=== PATIENT | male | born 1950 | race Caucasian/White ===

== ENCOUNTER 2025-09-19 14:24 | Inpatient (IN) | payer MEDICARE, OTHER ==
[~2025-09-19] VITALS: Ht 182.9 cm; Wt 86.1 kg
[2025-09-19] MEDS ORDERED: ALBUTEROL SULFATE 2.5 MG/0.5 ML NEB SOLUTION NEB ONE (14:30)
[2025-09-19] MEDS ORDERED: IPRATROPIUM BROMIDE 0.5 MG/2.5 ML NEB SOLUTION NEB ONE (14:30)
[2025-09-19 15:28] LABS: PLATELET COUNT (AUTO) 370 K/uL (150-450); RED BLOOD CELL COUNT(AUTO) 3.08 MIL/uL (4.50-5.90); RED CELL DISTRIBUTION WIDTH 14.8 % (11.5-14.5); WHITE BLOOD COUNT (AUTO) 10.6 K/uL (4.5-11.0)
[2025-09-19 15:39] LABS: CALCIUM, TOTAL 9.1 mg/dL (8.8-10.5); CREATININE 1.26 mg/dL (0.60-1.30); GLOMERULAR FILTR. RATE CALC 56 mL/min (>60); GLUCOSE,RANDOM 270 mg/dL (70-110); SODIUM SERUM 137 mmol/L (136-145); UREA NITROGEN, BLOOD 52 mg/dL (7-18)
[2025-09-19 15:40] LABS: PHOSPHORUS 4.9 mg/dL (2.5-4.9)
[2025-09-19 15:45] LABS: TROPONIN I-HIGH SENSITIVITY 271 ng/L (<76)
[2025-09-19] MEDS ORDERED: ONDANSETRON HCL 4 MG/2 ML VIAL IVP PRN (17:15)
[2025-09-19 17:20] LABS: COVID AG,FIA SOURCE NASAL SWAB
[2025-09-19 17:49] LABS: SARS-COV2 (COVID) ANTIGEN,FIA Negative (Negative)
[2025-09-19 17:50] LABS: INFLUENZA TYPE A NEGATIVE FOR TYPE A (NEGATIVE); INFLUENZA TYPE B NEGATIVE FOR TYPE B (NEGATIVE)
[2025-09-19 17:58] LABS: TROPONIN I-HIGH SENSITIVITY 142 ng/L (<76)
[2025-09-19 18:45] LABS: APPEARANCE,URINE CLEAR (CLEAR); GLUCOSE, URINE (UA) >=1000 mg/dL (NEGATIVE); LEUKOCYTE ESTERASE ,URINE NEGATIVE (NEGATIVE); NITRATE,URINE NEGATIVE (NEGATIVE); OCCULT BLOOD,URINE NEGATIVE (NEGATIVE); SPECIFIC GRAVITIY, URINE 1.020 (1.003-1.030)
[2025-09-19] MEDS ORDERED: IOHEXOL 350 MG/ML 100 ML VIAL ONE ×3 (19:13→21:30)
[2025-09-19 19:32] LABS: SQUAMOUS EPITHELIAL CELL,UR Rare /LPF (None Seen)
[2025-09-19 20:10] LABS: TROPONIN I-HIGH SENSITIVITY 287 ng/L (<76)
[2025-09-19] MEDS: DOCUSATE SODIUM 100 MG CAPSULE PO SCH (20:12)
[2025-09-19] MEDS ORDERED: SODIUM CHLORIDE 0.9% 100 ML ONE ×2 (20:16→21:30)
[2025-09-19] MEDS ORDERED: 0.9% SODIUM CHLORIDE 10 ML SYRINGE IVP PRN (21:30)
[2025-09-19] MEDS ORDERED: SODIUM CHLORIDE 0.9% 2,700 ML IV ONE (21:30)
[2025-09-19] MEDS: VANCOMYCIN 1.75GM/WATER(PEG) 350 ML IV ONE (22:00)
[2025-09-19 22:04] LABS: PLATELET COUNT (AUTO) 393 K/uL (150-450); RED BLOOD CELL COUNT(AUTO) 3.26 MIL/uL (4.50-5.90); RED CELL DISTRIBUTION WIDTH 15.2 % (11.5-14.5); WHITE BLOOD COUNT (AUTO) 8.1 K/uL (4.5-11.0)
[2025-09-19 22:14] LABS: CALCIUM, TOTAL 9.4 mg/dL (8.8-10.5); CREATININE 0.90 mg/dL (0.60-1.30); GLOMERULAR FILTR. RATE CALC > 60 mL/min (>60); GLUCOSE,RANDOM 149 mg/dL (70-110); SODIUM SERUM 142 mmol/L (136-145); UREA NITROGEN, BLOOD 48 mg/dL (7-18)
[2025-09-19 22:18] LABS: ASPARTATE AMINOTRANSFERASE 24 U/L (15-37); LACTATE DEHYDROGENASE 343 U/L (85-227); TOTAL PROTEIN, SERUM 6.6 g/dL (6.4-8.2)
[2025-09-19 22:20] LABS: LACTIC ACID 1.2 mmol/L (0.4-2.0)
[2025-09-19 22:28] VITALS: BP 158/83; PULSE 91; RESP 18; TEMP 98.6; O2SAT 99
[2025-09-19] MEDS: SODIUM CHLORIDE 0.9% 250 ML IV ONE (23:12)
[2025-09-20] VITALS (11 sets, daily range): BP systolic 118–158; BP diastolic 71–86; PULSE 62–93; RESP 17–24; TEMP 97.2–98.4; O2SAT 95–99
[2025-09-20] MEDS ORDERED: SODIUM CHLORIDE 0.9% 500 ML IV ONE ×2 (00:14→12:04)
[2025-09-20] MEDS: HEPARIN SODIUM,PORCINE 5,000 UNITS/ML VIAL SQ SCH (00:30)
[2025-09-20 01:22] LABS: TROPONIN I-HIGH SENSITIVITY 241 ng/L (<76)
[2025-09-20] MEDS: FUROSEMIDE 40 MG/4 ML VIAL IVP ONE (04:00)
[2025-09-20] MEDS: CefTRIAXone 1 GM/DEXTROSE 50 ML IV SCH (04:00)
[2025-09-20 06:25] LABS: PLATELET COUNT (AUTO) 337 K/uL (150-450); RED BLOOD CELL COUNT(AUTO) 2.92 MIL/uL (4.50-5.90); RED CELL DISTRIBUTION WIDTH 15.0 % (11.5-14.5); WHITE BLOOD COUNT (AUTO) 8.7 K/uL (4.5-11.0)
[2025-09-20 07:04] LABS: CALCIUM, TOTAL 9.1 mg/dL (8.8-10.5); CREATININE 1.03 mg/dL (0.60-1.30); GLOMERULAR FILTR. RATE CALC > 60 mL/min (>60); GLUCOSE,RANDOM 156 mg/dL (70-110); SODIUM SERUM 141 mmol/L (136-145); UREA NITROGEN, BLOOD 45 mg/dL (7-18)
[2025-09-20] MEDS: VANCOMYCIN 1GM/WATER(PEG/NADA) 200 ML IV SCH (08:00)
[2025-09-20] MEDS ORDERED: VANCOMYCIN 1.5 GM/WATER(PEG) 300 ML IV SCH (08:00)
[2025-09-20 10:14] LABS: ABG BASE EXCESS 6.5 mmol/L (-2.0-3.0); ABG CARBOXYHEMOGLOBIN 0.8 % (0.5-1.5); ABG HCO3 29.8 mmol/L (21.0-28.0); ABG METHEMOGLOBIN 0.3 % (0.0-1.5); ABG OXYGEN CONTENT 13.4 mL/dL (15.0-23.0); ABG OXYGEN SATURATION 94.6 % (94.0-98.0); ABG OXYHEMOGLOBIN 93.6 % (94.0-98.0); ABG PCO2 39 mmHg (32.0-48.0); ABG PH 7.498 (7.350-7.450); ABG TOTAL HEMOGLOBIN 10.1 G/dL (13.5-17.5); FRACTIONATED INSPIRED OXYGEN 40.0 % (21-100.0); PO2, ARTERIAL BG 67.6 mmHg (83.0-108.0); SOURCE, BLOOD GAS ARTERIAL; TEMPERATURE, FAHRENHEIT, BG 97.0 FAHREN (96.0-98.6)
[2025-09-20 10:15] LABS: ABG A-A DIFF O2 173.6 mmHg (10-20.0); ALLEN TEST, BLOOD GAS Positive; FLOW, BLOOD GAS 30.00 L/min (0.00-15.00); O2 DEVICE,BLOOD GAS HI FL CANNULA (ROOM AIR); SITE, BLOOD GAS RT RADIAL
[2025-09-20] MEDS ORDERED: DEXTROSE 50%-WATER 25 GM/50 ML SYRINGE IVP PRN (10:15)
[2025-09-20] MEDS ORDERED: HEPARIN SODIUM,PORCINE 5,000 UNITS/ML VIAL IVP PRN (10:30)
[2025-09-20] MEDS: FUROSEMIDE 20 MG/2 ML VIAL IVP SCH (10:31)
[2025-09-20] MEDS: ASPIRIN 81 MG CHEWABLE TABLET PO SCH (10:32)
[2025-09-20] MEDS: ATORVASTATIN CALCIUM 40 MG TABLET PO ONE (10:32)
[2025-09-20 11:41] LABS: PLATELET COUNT (AUTO) 362 K/uL (150-450); RED BLOOD CELL COUNT(AUTO) 3.12 MIL/uL (4.50-5.90); RED CELL DISTRIBUTION WIDTH 15.3 % (11.5-14.5); WHITE BLOOD COUNT (AUTO) 8.4 K/uL (4.5-11.0)
[2025-09-20] MEDS: POLYETHYLENE GLYCOL 3350 17 GM PACKET PO SCH (12:00)
[2025-09-20] MEDS: PIPERACILLIN/TAZO 3.375 GM/D5W 50 ML IV SCH (12:17)
[2025-09-20] MEDS: HEPARIN SODIUM,PORCINE 5,000 UNITS/ML VIAL IVP ONE (12:56)
[2025-09-20] MEDS: HEPARIN SODIUM 25000 UNITS/D5W 250 ML IV PRN (13:04)
[2025-09-20] MEDS: INSULIN LISPRO 100 UNITS/ML SQ PRN (18:28)
[2025-09-20] MEDS: HEPARIN SODIUM,PORCINE 5,000 UNITS/ML VIAL IVP PRN (20:48)
[2025-09-20 23:31] LABS: GLUCOMETER DEV NAME(LOC) 5S.2E; GLUCOSE,POINT OF CARE 210 MG/DL (70-110)
[2025-09-21 03:02] VITALS: BP 152/85; PULSE 98; RESP 19; TEMP 97.9; O2SAT 96
[2025-09-21] MEDS ORDERED: ALLO100T50 PO (04:54)
[2025-09-21] MEDS ORDERED: VALS40TA11 PO (05:03)
[2025-09-21] MEDS ORDERED: MEMA10TA24 PO (05:03)
[2025-09-21] MEDS ORDERED: SPIR-37 PO (05:03)
[2025-09-21] MEDS ORDERED: CLOP-31 PO (05:03)
[2025-09-21] MEDS ORDERED: ATOR40TA71 PO (05:03)
[2025-09-21] MEDS ORDERED: TAMS0.4C94 PO (05:03)
[2025-09-21] MEDS ORDERED: FURO-151 PO (05:03)
[2025-09-21] MEDS ORDERED: EZET10TA82 PO (05:03)
[2025-09-21] MEDS ORDERED: EMPA25TA3 PO (05:03)
[2025-09-21] MEDS ORDERED: BISA10SU61 PR (05:03)
[2025-09-21] MEDS ORDERED: ASPI81TA87 PO (05:03)
[2025-09-21 06:22] LABS: PLATELET COUNT (AUTO) 391 K/uL (150-450); RED BLOOD CELL COUNT(AUTO) 3.18 MIL/uL (4.50-5.90); RED CELL DISTRIBUTION WIDTH 15.3 % (11.5-14.5); WHITE BLOOD COUNT (AUTO) 10.0 K/uL (4.5-11.0)
[2025-09-21 06:26] LABS: CALCIUM, TOTAL 9.3 mg/dL (8.8-10.5); CREATININE 1.27 mg/dL (0.60-1.30); GLOMERULAR FILTR. RATE CALC 55.0 mL/min (>60); GLUCOSE,RANDOM 187.0 mg/dL (70-110); SODIUM SERUM 136.0 mmol/L (136-145); UREA NITROGEN, BLOOD 48.0 mg/dL (7-18)
[2025-09-21 07:29] VITALS: PULSE 89; RESP 20; O2SAT 95
[2025-09-21 09:05] LABS: SPECIMENTYPE,BODY FLUID PLV
[2025-09-21 10:12] LABS: APPEARANCE,SPUN,BODY FLUID TURBID (CLEAR); APPEARANCE,UNSPUN,BODY FLUID BLOODY (CLEAR); COLOR,BODY FLUID RED (LT YELLOW); TOTAL VOLUME,BODY FLUID 650 mL; WBC, BODY FLUID 167 /cu. mm.
[2025-09-21 10:13] LABS: BASOPHILS,BODY FLUID 0 % (1-5); EOSINOPHILS,BF (ANAL) 0 %; LYMPHOCYTES,BODY FLUID 15 %; MONOCYTES,BODY FLUID 6 %; NEUTROPHILS,BODY FLUID 79 %; PH, BODY FLUID 9.0 (6.8-7.6)
[2025-09-21 12:51] VITALS: BP 152/76; PULSE 78; RESP 17; TEMP 97.7; O2SAT 99
[2025-09-21 16:39] VITALS: BP 129/68; PULSE 79; RESP 17; TEMP 98.2; O2SAT 99
[2025-09-21] MEDS ORDERED: SODIUM CHLORIDE 0.9% 1,000 ML ONE (18:06)
[2025-09-21 18:31] LABS: GLUCOMETER DEV NAME(LOC) 5S.2E; GLUCOSE,POINT OF CARE 223 MG/DL (70-110)
[2025-09-21 18:31] LABS: GLUCOMETER DEV NAME(LOC) 5S.2E; GLUCOSE,POINT OF CARE 182 MG/DL (70-110)
[2025-09-21 18:31] LABS: GLUCOMETER DEV NAME(LOC) 5S.2E; GLUCOSE,POINT OF CARE 185 MG/DL (70-110)
[2025-09-21 19:59] VITALS: PULSE 74; RESP 18; O2SAT 94
[2025-09-21] MEDS: ATORVASTATIN CALCIUM 40 MG TABLET PO SCH (20:20)
[2025-09-21 20:34] VITALS: BP 130/66; PULSE 79; RESP 19; TEMP 98.2; O2SAT 99
[2025-09-21] MEDS ORDERED: SODIUM CHLORIDE 0.9% 250 ML IV ONE (21:28)
[2025-09-22] VITALS (7 sets, daily range): BP systolic 103–154; BP diastolic 60–77; PULSE 71–92; RESP 18–19; TEMP 97.7–98.8; O2SAT 96–99
[2025-09-22 08:56] LABS: PLATELET COUNT (AUTO) 350 K/uL (150-450); RED BLOOD CELL COUNT(AUTO) 2.93 MIL/uL (4.50-5.90); RED CELL DISTRIBUTION WIDTH 15.3 % (11.5-14.5); WHITE BLOOD COUNT (AUTO) 7.4 K/uL (4.5-11.0)
[2025-09-22 09:05] LABS: CALCIUM, TOTAL 8.6 mg/dL (8.8-10.5); CREATININE 0.96 mg/dL (0.60-1.30); GLOMERULAR FILTR. RATE CALC > 60 mL/min (>60); GLUCOSE,RANDOM 148 mg/dL (70-110); SODIUM SERUM 140 mmol/L (136-145); UREA NITROGEN, BLOOD 43 mg/dL (7-18)
[2025-09-22] MEDS: FUROSEMIDE 20 MG/2 ML VIAL IVP SCH (13:36)
[2025-09-22] MEDS: VANCOMYCIN 1GM/WATER(PEG/NADA) 200 ML IV ONE (13:45)
[2025-09-22 14:07] LABS: GLUCOSE, BODY FLUID,REF 161.0 mg/dL; LDH,BODY FLUID,REF 1183.0 IU/L; TOTAL PROTEIN,BODY FLUID,REF 3.0 g/dL
[2025-09-22 17:50] LABS: GLUCOMETER DEV NAME(LOC) 5N.2C; GLUCOSE,POINT OF CARE 226 MG/DL (70-110)
[2025-09-22 17:51] LABS: GLUCOMETER DEV NAME(LOC) 5N.2C; GLUCOSE,POINT OF CARE 157 MG/DL (70-110)
[2025-09-22] MEDS: VANCOMYCIN 1GM/WATER(PEG/NADA) 200 ML IV SCH (20:41)
[2025-09-23] VITALS (10 sets, daily range): BP systolic 131–156; BP diastolic 70–82; PULSE 73–87; RESP 16–24; TEMP 97.7–98.6; O2SAT 95–99
[2025-09-23 06:53] LABS: CALCIUM, TOTAL 9.3 mg/dL (8.8-10.5); CREATININE 1.03 mg/dL (0.60-1.30); GLOMERULAR FILTR. RATE CALC > 60 mL/min (>60); GLUCOSE,RANDOM 151 mg/dL (70-110); SODIUM SERUM 139 mmol/L (136-145); UREA NITROGEN, BLOOD 39 mg/dL (7-18)
[2025-09-23] MEDS: HEPARIN SODIUM,PORCINE 5,000 UNITS/ML VIAL SQ SCH (20:50)
[2025-09-23] MEDS ORDERED: SODIUM CHLORIDE 0.9% 500 ML IV ONE (21:01)
[2025-09-23 21:40] LABS: GLUCOMETER DEV NAME(LOC) 4E.2; GLUCOSE,POINT OF CARE 245 MG/DL (70-110)
[2025-09-23] MEDS: FUROSEMIDE 20 MG/2 ML VIAL IVP ONE (22:19)
[2025-09-23] MEDS: ALBUTEROL SULFATE 2.5 MG/0.5 ML NEB SOLUTION NEB PRN (23:48)
[2025-09-23] MEDS: IPRATROPIUM BROMIDE 0.5 MG/2.5 ML NEB SOLUTION NEB PRN (23:48)
[2025-09-24 05:30] VITALS: BP 143/74; PULSE 82; RESP 20; TEMP 98.5; O2SAT 99
[2025-09-24 06:26] LABS: PLATELET COUNT (AUTO) 339 K/uL (150-450); RED BLOOD CELL COUNT(AUTO) 3.05 MIL/uL (4.50-5.90); RED CELL DISTRIBUTION WIDTH 15.2 % (11.5-14.5); WHITE BLOOD COUNT (AUTO) 7.0 K/uL (4.5-11.0)
[2025-09-24 06:30] LABS: ASPARTATE AMINOTRANSFERASE 17 U/L (15-37); CALCIUM, TOTAL 8.7 mg/dL (8.8-10.5); CREATININE 0.96 mg/dL (0.60-1.30); GLOMERULAR FILTR. RATE CALC > 60 mL/min (>60); GLUCOSE,RANDOM 184 mg/dL (70-110); SODIUM SERUM 136 mmol/L (136-145); TOTAL PROTEIN, SERUM 5.7 g/dL (6.4-8.2); UREA NITROGEN, BLOOD 38 mg/dL (7-18)
[2025-09-24 11:00] VITALS: BP 138/77; PULSE 80; RESP 18; TEMP 98.2; O2SAT 92
[2025-09-24 15:00] VITALS: BP 139/69; PULSE 74; RESP 19; TEMP 97.5; O2SAT 98
[2025-09-24 18:56] VITALS: PULSE 70; RESP 18; O2SAT 98
[2025-09-24 19:11] VITALS: PULSE 75; RESP 18; O2SAT 99
[2025-09-24 20:35] VITALS: BP 147/80; PULSE 78; RESP 19; TEMP 97.5; O2SAT 97
[2025-09-24 20:46] LABS: GLUCOMETER DEV NAME(LOC) 5S.2E; GLUCOSE,POINT OF CARE 268 MG/DL (70-110)
[2025-09-24 20:46] LABS: GLUCOMETER DEV NAME(LOC) 5S.2E; GLUCOSE,POINT OF CARE 222 MG/DL (70-110)
[2025-09-24 20:46] LABS: GLUCOMETER DEV NAME(LOC) 5S.2E; GLUCOSE,POINT OF CARE 155 MG/DL (70-110)
[2025-09-24 20:46] LABS: GLUCOMETER DEV NAME(LOC) 5S.2E; GLUCOSE,POINT OF CARE 161 MG/DL (70-110)
[2025-09-24 20:47] LABS: GLUCOMETER DEV NAME(LOC) 5S.2E; GLUCOSE,POINT OF CARE 180 MG/DL (70-110)
[2025-09-24 20:47] LABS: GLUCOMETER DEV NAME(LOC) 5S.2E; GLUCOSE,POINT OF CARE 240 MG/DL (70-110)
[2025-09-24 20:47] LABS: GLUCOMETER DEV NAME(LOC) 5S.2E; GLUCOSE,POINT OF CARE 291 MG/DL (70-110)
[2025-09-24 20:47] LABS: GLUCOMETER DEV NAME(LOC) 5S.2E; GLUCOSE,POINT OF CARE 327 MG/DL (70-110)
[2025-09-24 20:47] LABS: GLUCOMETER DEV NAME(LOC) 5S.2E; GLUCOSE,POINT OF CARE 262 MG/DL (70-110)
[2025-09-24] MEDS: FUROSEMIDE 20 MG/2 ML VIAL IVP SCH (20:52)
[2025-09-24] MEDS: INSULIN GLARGINE,HUM.REC.ANLOG 100 UNITS/ML SQ SCH (21:04)
[2025-09-25] VITALS (9 sets, daily range): BP systolic 131–149; BP diastolic 69–85; PULSE 65–94; RESP 17–20; TEMP 97.5–98.1; O2SAT 95–100
[2025-09-25 06:11] LABS: GLUCOMETER DEV NAME(LOC) 5S.2E; GLUCOSE,POINT OF CARE 235 MG/DL (70-110)
[2025-09-25 06:11] LABS: GLUCOMETER DEV NAME(LOC) 5S.2E; GLUCOSE,POINT OF CARE 166 MG/DL (70-110)
[2025-09-25] MEDS: VANCOMYCIN 1.5 GM/WATER(PEG) 300 ML IV SCH (09:35)
[2025-09-25] MEDS: APIXABAN 5 MG TABLET PO SCH (09:36)
[2025-09-25 09:54] LABS: CALCIUM, TOTAL 9.5 mg/dL (8.8-10.5); CREATININE 1.12 mg/dL (0.60-1.30); GLOMERULAR FILTR. RATE CALC > 60 mL/min (>60); GLUCOSE,RANDOM 191 mg/dL (70-110); SODIUM SERUM 138 mmol/L (136-145); UREA NITROGEN, BLOOD 41 mg/dL (7-18)
[2025-09-25 20:35] LABS: GLUCOMETER DEV NAME(LOC) 5S.2E; GLUCOSE,POINT OF CARE 279 MG/DL (70-110)
[2025-09-25 20:35] LABS: GLUCOMETER DEV NAME(LOC) 5S.2E; GLUCOSE,POINT OF CARE 150 MG/DL (70-110)
[2025-09-25] MEDS: ALBUTEROL SULFATE 2.5 MG/0.5 ML NEB SOLUTION NEB SCH (21:12)
[2025-09-26] VITALS (11 sets, daily range): BP systolic 110–148; BP diastolic 66–79; PULSE 64–88; RESP 17–19; TEMP 98.1–98.6; O2SAT 97–100
[2025-09-26 06:10] LABS: GLUCOMETER DEV NAME(LOC) 5S.2E; GLUCOSE,POINT OF CARE 195 MG/DL (70-110)
[2025-09-26 07:29] LABS: CALCIUM, TOTAL 9.2 mg/dL (8.8-10.5); CREATININE 1.11 mg/dL (0.60-1.30); GLOMERULAR FILTR. RATE CALC > 60 mL/min (>60); GLUCOSE,RANDOM 129 mg/dL (70-110); SODIUM SERUM 139 mmol/L (136-145); UREA NITROGEN, BLOOD 42 mg/dL (7-18)
[2025-09-26] MEDS ORDERED: SODIUM CHLORIDE 0.9% 250 ML IV ONE (08:22)
[2025-09-26] MEDS: BENZONATATE 100 MG CAPSULE PO SCH (08:41)
[2025-09-26] MEDS: CLOPIDOGREL BISULFATE 75 MG TABLET PO SCH (09:00)
[2025-09-26] MEDS ORDERED: FUROSEMIDE 40 MG TABLET PO SCH (09:00)
[2025-09-26] MEDS ORDERED: SUGAMMADEX SODIUM 200 MG/2 ML VIAL IVP ONE (09:53)
[2025-09-26] MEDS ORDERED: ONDANSETRON HCL 4 MG/2 ML VIAL ONE (09:53)
[2025-09-26] MEDS ORDERED: LIDOCAINE/PF 2% 5 ML SYRINGE IVP ONE (09:53)
[2025-09-26] MEDS ORDERED: PROPOFOL 1% ISO-OSM 1000 MG/100 ML BOTTLE ONE (09:53)
[2025-09-26] MEDS ORDERED: PROPOFOL 1% 20 ML VIAL IVP ONE (09:53)
[2025-09-26] MEDS ORDERED: DEXAMETHASONE SOD PHOS 4 MG/ML VIAL ONE (09:53)
[2025-09-26] MEDS ORDERED: ROCURONIUM BROMIDE 10 MG/ML 5 ML VIAL ONE (09:53)
[2025-09-26] MEDS: HEPARIN SODIUM,PORCINE 5,000 UNITS/ML VIAL SQ SCH (11:32)
[2025-09-26] MEDS: FUROSEMIDE 40 MG TABLET PO SCH (21:40)
[2025-09-27] VITALS (22 sets, daily range): BP systolic 118–181; BP diastolic 57–91; PULSE 68–90; RESP 16–48; TEMP 97.1–98.4; O2SAT 89–100
[2025-09-27 07:26] LABS: PLATELET COUNT (AUTO) 307 K/uL (150-450); RED BLOOD CELL COUNT(AUTO) 3.46 MIL/uL (4.50-5.90); RED CELL DISTRIBUTION WIDTH 15.4 % (11.5-14.5); WHITE BLOOD COUNT (AUTO) 7.0 K/uL (4.5-11.0)
[2025-09-27 07:53] LABS: ASPARTATE AMINOTRANSFERASE 26 U/L (15-37); CALCIUM, TOTAL 9.3 mg/dL (8.8-10.5); CREATININE 1.13 mg/dL (0.60-1.30); GLOMERULAR FILTR. RATE CALC > 60 mL/min (>60); GLUCOSE,RANDOM 164 mg/dL (70-110); SODIUM SERUM 138 mmol/L (136-145); TOTAL PROTEIN, SERUM 6.6 g/dL (6.4-8.2); UREA NITROGEN, BLOOD 42 mg/dL (7-18)
[2025-09-27] MEDS: VANCOMYCIN 1.25 GM/WATER(PEG) 250 ML IV SCH (09:54)
[2025-09-27] MEDS ORDERED: RINGERS SOLUTION,LACTATED 1,000 ML IV ONE (09:59)
[2025-09-27] MEDS ORDERED: FentaNYL CITRATE PF 100 MCG/2 ML VIAL ONE (10:01)
[2025-09-27] MEDS: RINGERS SOLUTION,LACTATED 1,000 ML IV ONE (11:01)
[2025-09-27] MEDS: ETHYL ALCOHOL 62% ANTISEPTIC NASAL SANITIZER 0.6 ML AMPUL NASAL ONE (11:07)
[2025-09-27] MEDS ORDERED: SODIUM CHLORIDE 0.9% 0 ML ONE (12:27)
[2025-09-27] MEDS: CHLORHEXIDINE GLUCONATE 2% TOWELETTE [2'S/6'S] TP ONE (12:30)
[2025-09-27 12:35] LABS: ABG BASE EXCESS 1.8 mmol/L (-2.0-3.0); ABG CARBOXYHEMOGLOBIN 1.4 % (0.5-1.5); ABG HCO3 25.9 mmol/L (21.0-28.0); ABG METHEMOGLOBIN 0.3 % (0.0-1.5); ABG OXYGEN CONTENT 14.0 mL/dL (15.0-23.0); ABG OXYGEN SATURATION 93.2 % (94.0-98.0); ABG OXYHEMOGLOBIN 91.6 % (94.0-98.0); ABG PCO2 38 mmHg (32.0-48.0); ABG PH 7.446 (7.350-7.450); ABG TOTAL HEMOGLOBIN 10.8 G/dL (13.5-17.5); FRACTIONATED INSPIRED OXYGEN 28.0 % (21-100.0); PO2, ARTERIAL BG 64.6 mmHg (83.0-108.0); SOURCE, BLOOD GAS ARTERIAL; TEMPERATURE, FAHRENHEIT, BG 97.3 FAHREN (96.0-98.6)
[2025-09-27 12:56] LABS: FLOW, BLOOD GAS 2.00 L/min (0.00-15.00); O2 DEVICE,BLOOD GAS CANNULA (ROOM AIR); SITE, BLOOD GAS ARTERIAL LINE
[2025-09-27] MEDS: DOXYCYCLINE HYCLATE 100 MG/VIAL IPL ONE (13:15)
[2025-09-27] MEDS: BUPIVACAINE HCL/PF 0.25% 30 ML VIAL ONE (13:20)
[2025-09-27] MEDS ORDERED: HYDROCODONE/ACETAMINOPHEN 5-325 MG TABLET PO PRN (13:45)
[2025-09-27] MEDS ORDERED: ACETAMINOPHEN 1000 MG/ISO-OSM 100 ML IV ONE (13:49)
[2025-09-27 15:10] LABS: ABG BASE EXCESS -0.9 mmol/L (-2.0-3.0); ABG CARBOXYHEMOGLOBIN 1.1 % (0.5-1.5); ABG HCO3 23.3 mmol/L (21.0-28.0); ABG METHEMOGLOBIN 0.1 % (0.0-1.5); ABG OXYGEN CONTENT 15.2 mL/dL (15.0-23.0); ABG OXYGEN SATURATION 96.2 % (94.0-98.0); ABG OXYHEMOGLOBIN 95.0 % (94.0-98.0); ABG PCO2 51 mmHg (32.0-48.0); ABG PH 7.312 (7.350-7.450); ABG TOTAL HEMOGLOBIN 11.3 G/dL (13.5-17.5); FRACTIONATED INSPIRED OXYGEN 50.0 % (21-100.0); PO2, ARTERIAL BG 87.7 mmHg (83.0-108.0); SOURCE, BLOOD GAS ARTERIAL; TEMPERATURE, FAHRENHEIT, BG 98.0 FAHREN (96.0-98.6)
[2025-09-27 15:11] LABS: ABG A-A DIFF O2 211.7 mmHg (10-20.0); FLOW, BLOOD GAS 10.00 L/min (0.00-15.00); O2 DEVICE,BLOOD GAS SIMPLE MASK (ROOM AIR); PATIENT RATE, BG 35.0 min.; SITE, BLOOD GAS ARTERIAL LINE
[2025-09-27 17:30] LABS: ABG BASE EXCESS -1.5 mmol/L (-2.0-3.0); ABG CARBOXYHEMOGLOBIN 0.7 % (0.5-1.5); ABG HCO3 23.3 mmol/L (21.0-28.0); ABG METHEMOGLOBIN 0.1 % (0.0-1.5); ABG OXYGEN CONTENT 15.1 mL/dL (15.0-23.0); ABG OXYGEN SATURATION 98.1 % (94.0-98.0); ABG OXYHEMOGLOBIN 97.3 % (94.0-98.0); ABG PCO2 41 mmHg (32.0-48.0); ABG PH 7.378 (7.350-7.450); ABG TOTAL HEMOGLOBIN 10.9 G/dL (13.5-17.5); FRACTIONATED INSPIRED OXYGEN 60.0 % (21-100.0); PO2, ARTERIAL BG 115.3 mmHg (83.0-108.0); SOURCE, BLOOD GAS ARTERIAL; TEMPERATURE, FAHRENHEIT, BG 97.5 FAHREN (96.0-98.6)
[2025-09-27 17:31] LABS: ABG A-A DIFF O2 268.1 mmHg (10-20.0); O2 DEVICE,BLOOD GAS BIPAP (ROOM AIR); PATIENT RATE, BG 27.0 min.; SET RATE, BG 18.0 min.; SITE, BLOOD GAS ARTERIAL LINE
[2025-09-27 17:32] LABS: SPONTANEOUS VT, BG 358 ml
[2025-09-27] MEDS ORDERED: SODIUM CHLORIDE 0.9% 250 ML IV ONE (17:37)
[2025-09-27] MEDS: FUROSEMIDE 20 MG/2 ML VIAL IVP ONE (17:50)
[2025-09-27] MEDS: LABETALOL HCL 5 MG/ML 20 ML VIAL IVP ONE (17:51)
[2025-09-27 18:01] LABS: GLUCOMETER DEV NAME(LOC) ICU.S7; GLUCOSE,POINT OF CARE 184 MG/DL (70-110)
[2025-09-27 21:11] LABS: GLUCOMETER DEV NAME(LOC) ICU.S7; GLUCOSE,POINT OF CARE 160 MG/DL (70-110)
[2025-09-28] VITALS (18 sets, daily range): BP systolic 121–143; BP diastolic 59–76; PULSE 65–86; RESP 17–33; TEMP 97.9–98.5; O2SAT 88–100
[2025-09-28 05:55] LABS: GLUCOMETER DEV NAME(LOC) ICUN.7; GLUCOSE,POINT OF CARE 171 MG/DL (70-110)
[2025-09-28 08:45] LABS: CALCIUM, TOTAL 8.9 mg/dL (8.8-10.5); CREATININE 0.84 mg/dL (0.60-1.30); GLOMERULAR FILTR. RATE CALC > 60 mL/min (>60); GLUCOSE,RANDOM 151 mg/dL (70-110); SODIUM SERUM 140 mmol/L (136-145); UREA NITROGEN, BLOOD 38 mg/dL (7-18)
[2025-09-28] MEDS ORDERED: SODIUM CHLORIDE 0.9% 250 ML IV ONE ×2 (10:14→11:06)
[2025-09-28] MEDS: FUROSEMIDE 20 MG/2 ML VIAL IVP SCH (11:36)
[2025-09-28 15:46] LABS: GLUCOMETER DEV NAME(LOC) ICU.S7; GLUCOSE,POINT OF CARE 167 MG/DL (70-110)
[2025-09-28 19:36] LABS: GLUCOMETER DEV NAME(LOC) ICUN.7; GLUCOSE,POINT OF CARE 215 MG/DL (70-110)
[2025-09-28] MEDS ORDERED: FUROSEMIDE 20 MG/2 ML VIAL IVP SCH (21:00)
[2025-09-29] VITALS (14 sets, daily range): BP systolic 131–162; BP diastolic 55–81; PULSE 65–86; RESP 20–36; TEMP 97.8–98.5; O2SAT 91–98
[2025-09-29 00:51] LABS: GLUCOMETER DEV NAME(LOC) ICU.S7; GLUCOSE,POINT OF CARE 214 MG/DL (70-110)
[2025-09-29 05:45] LABS: PLATELET COUNT (AUTO) 247 K/uL (150-450); RED BLOOD CELL COUNT(AUTO) 3.04 MIL/uL (4.50-5.90); RED CELL DISTRIBUTION WIDTH 15.9 % (11.5-14.5); WHITE BLOOD COUNT (AUTO) 6.4 K/uL (4.5-11.0)
[2025-09-29 06:04] LABS: ASPARTATE AMINOTRANSFERASE 16 U/L (15-37); CALCIUM, TOTAL 9.1 mg/dL (8.8-10.5); CREATININE 1.02 mg/dL (0.60-1.30); GLOMERULAR FILTR. RATE CALC > 60 mL/min (>60); GLUCOSE,RANDOM 162 mg/dL (70-110); SODIUM SERUM 140 mmol/L (136-145); TOTAL PROTEIN, SERUM 5.7 g/dL (6.4-8.2); UREA NITROGEN, BLOOD 35 mg/dL (7-18)
[2025-09-29 07:35] LABS: GLUCOMETER DEV NAME(LOC) ICU.S7; GLUCOSE,POINT OF CARE 155 MG/DL (70-110)
[2025-09-29 13:35] LABS: GLUCOMETER DEV NAME(LOC) ICUN.7; GLUCOSE,POINT OF CARE 195 MG/DL (70-110)
[2025-09-29 18:00] LABS: GLUCOMETER DEV NAME(LOC) ICUN.7; GLUCOSE,POINT OF CARE 217 MG/DL (70-110)
[2025-09-29 22:46] LABS: GLUCOMETER DEV NAME(LOC) ICU.S7; GLUCOSE,POINT OF CARE 217 MG/DL (70-110)
[2025-09-30] VITALS (19 sets, daily range): BP systolic 126–159; BP diastolic 57–87; PULSE 60–85; RESP 22–34; TEMP 97.8–98.5; O2SAT 90–100
[2025-09-30 05:49] LABS: CALCIUM, TOTAL 9.2 mg/dL (8.8-10.5); CREATININE 0.69 mg/dL (0.60-1.30); GLOMERULAR FILTR. RATE CALC > 60 mL/min (>60); GLUCOSE,RANDOM 96 mg/dL (70-110); SODIUM SERUM 139 mmol/L (136-145); UREA NITROGEN, BLOOD 32 mg/dL (7-18)
[2025-09-30 05:56] LABS: GLUCOMETER DEV NAME(LOC) ICU.S7; GLUCOSE,POINT OF CARE 98 MG/DL (70-110)
[2025-09-30 11:50] LABS: GLUCOMETER DEV NAME(LOC) ICU.S7; GLUCOSE,POINT OF CARE 128 MG/DL (70-110)
[2025-09-30] MEDS: DIGOXIN 250 MCG/ML 2 ML AMP IVP ONE (12:17)
[2025-09-30 17:30] LABS: GLUCOMETER DEV NAME(LOC) ICU.S7; GLUCOSE,POINT OF CARE 185 MG/DL (70-110)
[2025-09-30] MEDS: DEXTROSE 5%-0.45% SODIUM CHL 1,000 ML IV ONE (20:29)
[2025-09-30 22:06] LABS: GLUCOMETER DEV NAME(LOC) 5S.1E; GLUCOSE,POINT OF CARE 207 MG/DL (70-110)
[2025-09-30] MEDS ORDERED: SODIUM CHLORIDE 0.9% 250 ML IV ONE (22:24)
[2025-10-01] VITALS (19 sets, daily range): BP systolic 111–146; BP diastolic 59–80; PULSE 59–75; RESP 16–35; TEMP 97.7–98.6; O2SAT 98–100
[2025-10-01 06:15] LABS: GLUCOMETER DEV NAME(LOC) 5S.2E; GLUCOSE,POINT OF CARE 253 MG/DL (70-110)
[2025-10-01 06:16] LABS: GLUCOMETER DEV NAME(LOC) 5S.2E; GLUCOSE,POINT OF CARE 212 MG/DL (70-110)
[2025-10-01 06:16] LABS: GLUCOMETER DEV NAME(LOC) 5S.2E; GLUCOSE,POINT OF CARE 220 MG/DL (70-110)
[2025-10-01 06:58] LABS: PLATELET COUNT (AUTO) 233 K/uL (150-450); RED BLOOD CELL COUNT(AUTO) 3.29 MIL/uL (4.50-5.90); RED CELL DISTRIBUTION WIDTH 15.5 % (11.5-14.5); WHITE BLOOD COUNT (AUTO) 6.4 K/uL (4.5-11.0)
[2025-10-01 07:19] LABS: ASPARTATE AMINOTRANSFERASE 25 U/L (15-37); CALCIUM, TOTAL 8.9 mg/dL (8.8-10.5); CREATININE 0.80 mg/dL (0.60-1.30); GLOMERULAR FILTR. RATE CALC > 60 mL/min (>60); GLUCOSE,RANDOM 131 mg/dL (70-110); SODIUM SERUM 140 mmol/L (136-145); TOTAL PROTEIN, SERUM 5.4 g/dL (6.4-8.2); UREA NITROGEN, BLOOD 32 mg/dL (7-18)
[2025-10-01] MEDS ORDERED: SODIUM CHLORIDE 0.9% 500 ML IV ONE (10:09)
[2025-10-01 12:31] LABS: GLUCOMETER DEV NAME(LOC) 5S.1E; GLUCOSE,POINT OF CARE 130 MG/DL (70-110)
[2025-10-01 13:36] LABS: GLUCOMETER DEV NAME(LOC) 5S.2E; GLUCOSE,POINT OF CARE 152 MG/DL (70-110)
[2025-10-01] MEDS: DEXTROSE 5%-0.45% SODIUM CHL 1,000 ML IV ONE (18:27)
[2025-10-01] MEDS: ACETAMINOPHEN 325 MG TABLET PO PRN (21:18)
[2025-10-01 22:31] LABS: GLUCOMETER DEV NAME(LOC) 5S.2E; GLUCOSE,POINT OF CARE 110 MG/DL (70-110)
[2025-10-02] VITALS (16 sets, daily range): BP systolic 114–165; BP diastolic 63–75; PULSE 52–75; RESP 17–28; TEMP 97.5–100; O2SAT 97–100
[2025-10-02 06:21] LABS: PLATELET COUNT (AUTO) 229 K/uL (150-450); RED BLOOD CELL COUNT(AUTO) 3.22 MIL/uL (4.50-5.90); RED CELL DISTRIBUTION WIDTH 15.1 % (11.5-14.5); WHITE BLOOD COUNT (AUTO) 7.8 K/uL (4.5-11.0)
[2025-10-02 06:22] LABS: CALCIUM, TOTAL 9.1 mg/dL (8.8-10.5); CREATININE 1.00 mg/dL (0.60-1.30); GLOMERULAR FILTR. RATE CALC > 60 mL/min (>60); GLUCOSE,RANDOM 101 mg/dL (70-110); SODIUM SERUM 139 mmol/L (136-145); UREA NITROGEN, BLOOD 30 mg/dL (7-18)
[2025-10-02 06:40] LABS: GLUCOMETER DEV NAME(LOC) 5S.1E; GLUCOSE,POINT OF CARE 136 MG/DL (70-110)
[2025-10-02] MEDS: CLOPIDOGREL BISULFATE 75 MG TABLET PO SCH (08:29)
[2025-10-02 20:06] LABS: GLUCOMETER DEV NAME(LOC) 5S.1E; GLUCOSE,POINT OF CARE 131 MG/DL (70-110)
[2025-10-02 20:06] LABS: GLUCOMETER DEV NAME(LOC) 5S.1E; GLUCOSE,POINT OF CARE 211 MG/DL (70-110)
[2025-10-02 20:10] LABS: GLUCOMETER DEV NAME(LOC) 5S.2E; GLUCOSE,POINT OF CARE 89 MG/DL (70-110)
[2025-10-02 23:06] LABS: GLUCOMETER DEV NAME(LOC) 5S.2E; GLUCOSE,POINT OF CARE 224 MG/DL (70-110)
[2025-10-03] VITALS (15 sets, daily range): BP systolic 126–142; BP diastolic 59–74; PULSE 52–71; RESP 18–22; TEMP 98.2–100.2; O2SAT 96–100
[2025-10-03 06:06] LABS: PLATELET COUNT (AUTO) 248 K/uL (150-450); RED BLOOD CELL COUNT(AUTO) 3.28 MIL/uL (4.50-5.90); RED CELL DISTRIBUTION WIDTH 15.2 % (11.5-14.5); WHITE BLOOD COUNT (AUTO) 8.4 K/uL (4.5-11.0)
[2025-10-03 06:29] LABS: ASPARTATE AMINOTRANSFERASE 21 U/L (15-37); CALCIUM, TOTAL 9.0 mg/dL (8.8-10.5); CREATININE 1.04 mg/dL (0.60-1.30); GLOMERULAR FILTR. RATE CALC > 60 mL/min (>60); GLUCOSE,RANDOM 132 mg/dL (70-110); SODIUM SERUM 138 mmol/L (136-145); TOTAL PROTEIN, SERUM 5.9 g/dL (6.4-8.2); UREA NITROGEN, BLOOD 34 mg/dL (7-18)
[2025-10-03 06:55] LABS: GLUCOMETER DEV NAME(LOC) 5S.2E; GLUCOSE,POINT OF CARE 136 MG/DL (70-110)
[2025-10-03 20:20] LABS: GLUCOMETER DEV NAME(LOC) 5S.1E; GLUCOSE,POINT OF CARE 202 MG/DL (70-110)
[2025-10-03 20:20] LABS: GLUCOMETER DEV NAME(LOC) 5S.1E; GLUCOSE,POINT OF CARE 258 MG/DL (70-110)
[2025-10-04] VITALS (11 sets, daily range): BP systolic 119–135; BP diastolic 53–74; PULSE 55–69; RESP 18–31; TEMP 97.7–98.4; O2SAT 97–100
[2025-10-04 06:25] LABS: GLUCOMETER DEV NAME(LOC) 5S.2E; GLUCOSE,POINT OF CARE 127 MG/DL (70-110)
[2025-10-04 06:25] LABS: GLUCOMETER DEV NAME(LOC) 5S.2E; GLUCOSE,POINT OF CARE 214 MG/DL (70-110)
[2025-10-04 06:28] LABS: PLATELET COUNT (AUTO) 203 K/uL (150-450); RED BLOOD CELL COUNT(AUTO) 2.94 MIL/uL (4.50-5.90); RED CELL DISTRIBUTION WIDTH 15.2 % (11.5-14.5); WHITE BLOOD COUNT (AUTO) 5.6 K/uL (4.5-11.0)
[2025-10-04 06:37] LABS: CALCIUM, TOTAL 8.7 mg/dL (8.8-10.5); CREATININE 1.06 mg/dL (0.60-1.30); GLOMERULAR FILTR. RATE CALC > 60 mL/min (>60); GLUCOSE,RANDOM 116 mg/dL (70-110); SODIUM SERUM 139 mmol/L (136-145); UREA NITROGEN, BLOOD 38 mg/dL (7-18)
[2025-10-04] MEDS ORDERED: POTASSIUM CHL 10 MEQ/WATER 50 ML IV PRN (10:00)
[2025-10-04] MEDS: POTASSIUM CHLORIDE 20 MEQ ER TABLET PO PRN (10:37)
[2025-10-04 13:26] LABS: GLUCOMETER DEV NAME(LOC) 5S.2E; GLUCOSE,POINT OF CARE 197 MG/DL (70-110)
[2025-10-04 18:06] LABS: GLUCOMETER DEV NAME(LOC) 5S.2E; GLUCOSE,POINT OF CARE 239 MG/DL (70-110)
[2025-10-04 20:06] LABS: GLUCOMETER DEV NAME(LOC) 5N.1D; GLUCOSE,POINT OF CARE 155 MG/DL (70-110)
[2025-10-04] MEDS ORDERED: FUROSEMIDE 40 MG TABLET PO SCH (21:00)
[2025-10-05] MEDS ORDERED: LOSARTAN POTASSIUM 25 MG TABLET PO SCH (09:00)
[2025-10-12 14:07] LABS: COCCIDIOIDES BY CF(UCDAVIS) Negative; COCCIDIOIDES IMMUNODIF-UCDAVIS Negative
== END 2025-10-04 17:15 | DRG 163 ==
LOC: EMS 14:29 → EDH 17:10 → 5S 22:22 → 4E 09-23 18:22 → 5S 09-23 22:53 → ICU 09-27 14:20 → 5N 09-30 18:57
PROVIDERS: ADMIT Internal Medicine; ATTEND Internal Medicine
PROC: 5A0945A Assistance with Respiratory Ventilation, 24-96 Consecutive Hours, High Flow/Velocity Cannula (ICD-10-PCS; 2025-09-20)
PROC: 0W9B30Z Drainage of Left Pleural Cavity with Drainage Device, Percutaneous Approach (ICD-10-PCS; principal; 2025-09-21)
PROC: 0W9930Z Drainage of Right Pleural Cavity with Drainage Device, Percutaneous Approach (ICD-10-PCS; 2025-09-21)
PROC: 0W9B30Z Drainage of Left Pleural Cavity with Drainage Device, Percutaneous Approach (ICD-10-PCS; 2025-09-21)
PROC: 0BCP4ZZ Extirpation of Matter from Left Pleura, Percutaneous Endoscopic Approach (ICD-10-PCS; 2025-09-27)
PROC: 0W9B40Z Drainage of Left Pleural Cavity with Drainage Device, Percutaneous Endoscopic Approach (ICD-10-PCS; 2025-09-27)
PROC: 30233N1 Transfusion of Nonautologous Red Blood Cells into Peripheral Vein, Percutaneous Approach (ICD-10-PCS; 2025-09-27)
PROC: 5A0935A Assistance with Respiratory Ventilation, Less than 24 Consecutive Hours, High Flow/Velocity Cannula (ICD-10-PCS; 2025-09-27)
PROC: 5A09357 Assistance with Respiratory Ventilation, Less than 24 Consecutive Hours, Continuous Positive Airway Pressure (ICD-10-PCS; 2025-09-27)
PROC: 5A09357 Assistance with Respiratory Ventilation, Less than 24 Consecutive Hours, Continuous Positive Airway Pressure (ICD-10-PCS; 2025-09-28)
PROC: 5A09357 Assistance with Respiratory Ventilation, Less than 24 Consecutive Hours, Continuous Positive Airway Pressure (ICD-10-PCS; 2025-09-29)
PROC: 5A09357 Assistance with Respiratory Ventilation, Less than 24 Consecutive Hours, Continuous Positive Airway Pressure (ICD-10-PCS; 2025-09-30)
PROC: 5A09357 Assistance with Respiratory Ventilation, Less than 24 Consecutive Hours, Continuous Positive Airway Pressure (ICD-10-PCS; 2025-10-01)
PROC: 5A09357 Assistance with Respiratory Ventilation, Less than 24 Consecutive Hours, Continuous Positive Airway Pressure (ICD-10-PCS; 2025-10-02)
PROC: 5A09357 Assistance with Respiratory Ventilation, Less than 24 Consecutive Hours, Continuous Positive Airway Pressure (ICD-10-PCS; 2025-10-03)
PROC: 5A09357 Assistance with Respiratory Ventilation, Less than 24 Consecutive Hours, Continuous Positive Airway Pressure (ICD-10-PCS; 2025-10-04)
DX: J96.01 Acute respiratory failure with hypoxia (principal); I21.A1 Myocardial infarction type 2; I50.23 Acute on chronic systolic (congestive) heart failure; J86.9 Pyothorax without fistula; J18.9 Pneumonia, unspecified organism; D63.8 Anemia in other chronic diseases classified elsewhere; J94.2 Hemothorax; J91.8 Pleural effusion in other conditions classified elsewhere; F02.84 Dementia in other diseases classified elsewhere, unspecified severity, with anxiety; E11.9 Type 2 diabetes mellitus without complications; G20.A1 Parkinson's disease without dyskinesia, without mention of fluctuations; Z20.822 Contact with and (suspected) exposure to COVID-19; D64.9 Anemia, unspecified; Z95.1 Presence of aortocoronary bypass graft; I48.91 Unspecified atrial fibrillation; I25.10 Atherosclerotic heart disease of native coronary artery without angina pectoris; I25.5 Ischemic cardiomyopathy; E87.6 Hypokalemia
CPT/HCPCS: 32555; 71045; 71275; 74230; 76942; 80048; 80053; 80202; 81001; 82465; 82805; 82945; 82962; 83605; 83615; 83735; 83880; 83986; 84100; 84132; 84145; 84157; 84484; 85025; 85610; 85730; 86850; 86900; 86901; 86923; 87015; 87040; 87070; 87075; 87081; 87101; 87205; 87206; 87252; 87804; 88108; 88305; 89051; 92526; 92610; 92611; 93005; 93306; 93970; 94640; 94660; 94760; 97110; 97116; 97163; 97166; 97167; 97530; 97535; 99291; G0238; J0131; J0360; J0696; J1100; J1160; J1644; J1815; J1938; J2370; J2405; J2543; J2704; J3010; J3490; J7030; J7040; J7050; J7120; P9016; 36415-L1; 36415-TC; J7613; Z7610